=== PATIENT | female | born 1980 | race Caucasian/White ===

== ENCOUNTER → 2018-02-26 | Day surgery (SDC) | payer OTHER, BC ==
[~2018-02-26] MED LIST: ALBU2.5V8 IH; ALBU2.5V8 INH; BUDE10.2 IH; BYSTOLIC10 MG PO; DESV50TA PO; DEXT20TA2 PO; HYDROmorphone 2 MG/ML VIAL IV PRN; IV RINGERS,LACTATED 1000ML 1,000 ML IV SCH; LEVO100T5 PO; LIDOCAINE 1% PF 2 ML VIAL. ID PRN; MIDAZOLAM HCL/PF 2 MG/2 ML VIAL. IV PRN; MORPHINE SULFATE 2 MG/ML VIAL. IV PRN; ONDANSETRON PF 4 MG/2 ML VIAL. IV PRN; PROCHLORPERAZINE 10 MG/2 ML VIAL. IV PRN; PROPOFOL 20 ML IV ONE; PROPOFOL 60 ML IV ONE; TRAZ-86 PO; fentaNYL PF VIAL 100 MCG/2 ML VIAL IV PRN
[2018-02-26 10:03] LABS: U PREG PATIENT NEGATIVE (NEG)
[2018-02-26 11:58] VITALS: BP 135/62
--- NOTE | 2018-02-26 14:49 | PREOP HP ---
DATE OF SERVICE: 02/26/2018 REQUESTING PHYSICIAN AND PRIMARY CARE PHYSICIAN: Nila Nixon MD. REASON FOR PROCEDURE: Heartburn and history of Crohn's disease. HISTORY OF PRESENT ILLNESS: This is a 37-year-old female who presents with heartburn and a history of Crohn's disease. She is to undergo upper and lower endoscopy for further evaluation. The risks and benefits including bleeding, perforation, non-diagnosis and sedation were explained and she has agreed to proceed. PAST MEDICAL HISTORY: Significant for morbid obesity, binge eating disorder and Crohn's disease. MEDICATIONS: As per MAR. REVIEW OF SYSTEMS: Significant 12-point review of systems was done. It is positive as per HPI and otherwise negative. PHYSICAL EXAMINATION: VITAL SIGNS: She is afebrile and her vital signs are stable. GENERAL: She is an obese female, in no apparent distress. HEENT: Oropharynx is clear. CARDIOVASCULAR: S1, S2. LUNGS: Clear. ABDOMEN: Normoactive bowel sounds, soft, nontender, nondistended. EXTREMITIES: No edema. NEUROLOGIC: Awake, alert and oriented x 3. ASSESSMENT AND PLAN: 1. Heartburn. I will proceed with upper endoscopy for further evaluation. The risks and benefits including bleeding, perforation, non-diagnosis and sedation were explained and she has agreed to proceed. 2. Crohn's disease. Proceed with colonoscopy for further evaluation. The risks and benefits including bleeding, perforation, non-diagnosis and sedation were explained and she has agreed to proceed. Thank you for allowing me to participate in care of this patient. JANEL CANDELARIO MD DR: BRIANA/jace JOB#: [id number] / [id number]
--- NOTE | 2018-02-27 15:09 | PATHOLOGY ---
[facility] Accession Number: [id number] . 01 Material submitted: . PART A: SMALL BOWEL BIOPSY PART B: GASTRIC ANTRUM BIOPSY PART C: DISTAL ESOPHAGUS BIOPSY PART D: TERMINAL ILEUM PART E: CECAL POLYP BIOPSY PART F: CECUM BIOPSY PART G: ASCENDING COLON BIOPSY PART H: TRANSVERSE COLON BIOPSY PART I: DESCENDING COLON BIOPSY PART J: SIGMOID COLON BIOPSY PART K: RECTAL COLON BIOPSY . 01 Clinical history: . Heartburn, Crohn's . 02 Diagnosis: A. Small bowel, biopsy: - No significant histopathologic diagnosis. - Normal villous architecture. . B. Stomach, antrum, biopsy: - Chronic superficial gastritis, mild, with focal acute activity. - No evidence of Helicobacter pylori on immunoperoxidase stain. . C. Esophagus, distal, biopsy: - Squamocolumnar epithelium with moderate acute and chronic inflammation. - No evidence of intestinal metaplasia. . D. Small bowel, terminal ileum, biopsy: - Small bowel mucosa with moderate acute and chronic inflammation and focal superficial erosion. - No granulomata seen. . E. Colon, "cecal polyp", biopsy: - Hyperplastic polyp with moderate acute and chronic inflammation and focal superficial erosion. - No granulomata seen. . F, G, H and I. Colon, cecum, ascending, transverse, and descending, biopsies: - Colonic mucosa with acute cryptitis, focal, mild. - No granulomata seen. - No evidence of chronic inflammatory bowel disease. . J, K. Colon, sigmoid and rectum, biopsies: - Colonic mucosa with no significant histopathologic diagnosis. . (SKM:mmkell; 02/27/18) ON LICENSE OF [facility]/02/27/2018 . 02 Electronically signed: . Juvencio Lyons MD, Pathologist NPI- [id number] . 01 Gross description: . A. Received in formalin labeled "Pippa, Araceli, small bowel BX," are 4 segments of caldwell soft tissue measuring 1.2 x 0.6 x 0.2 cm in aggregate dimensions and ranging from 0.3 to 0.5 cm in maximum dimension. The specimen is submitted entirely in cassette A1. . B. Received in formalin labeled "Pippa, Araceli, gastric antrum," are 2 segments of caldwell soft tissue measuring 0.8 x 0.2 x 0.2 cm in aggregate dimensions and ranging from 0.3 to 0.5 cm in maximum dimension. The specimen is submitted entirely in cassette B1. . C. Received in formalin labeled "Pippa, Araceli, distal esophageal biopsy," are 3 segments of caldwell soft tissue measuring 0.9 x 0.6 x 0.2 cm in aggregate dimensions and ranging from 0.3 to 0.5 cm in maximum dimension. The specimen is submitted entirely in cassette C1. . D. Received in formalin labeled "Pippa, Araceli, terminal ileum BX," are multiple segments of caldwell soft tissue measuring 0.5 x 0.3 x 0.2 cm in aggregate dimensions. The specimen is filtered and entirely submitted in cassette D1. . E. Received in formalin labeled "Pippa, Araceli, cecal polyp," is a single segment of caldwell soft tissue measuring 0.3 cm in maximum dimension. The specimen is entirely submitted in cassette E1. . F. Received in formalin labeled "Pippa, Araceli, cecum BX," are 2 segments of caldwell soft tissue measuring 1.1 x 0.2 x 0.1 cm in aggregate dimensions and ranging from 0.5 to 0.6 cm in maximum dimension. The specimen is submitted entirely in cassette F1. . G. Received in formalin labeled "Pippa, Araceli, ascending colon," are 2 segments of caldwell soft tissue measuring 0.9 x 0.2 x 0.2 cm in aggregate dimensions and ranging from 0.4 to 0.5 cm in maximum dimension. The specimen is submitted entirely in cassette G1. . H. Received in formalin labeled "Pippa, Araceli, transverse colon," are 2 segments of caldwell soft tissue measuring 0.7 x 0.3 x 0.2 cm in aggregate dimensions and ranging from 0.3 to 0.4 cm in maximum dimension. The specimen is submitted entirely in cassette H1. . I. Received in formalin labeled "Pippa, Araceli, descending colon," are 2 segments of caldwell soft tissue measuring 0.7 x 0.2 x 0.1 cm in aggregate dimensions and ranging from 0.3 to 0.4 cm in maximum dimension. The specimen is submitted entirely in cassette I1. . J. Received in formalin labeled "Pippa, Araceli, sigmoid colon," are 2 segments of caldwell soft tissue measuring 0.9 x 0.2 x 0.1 cm in aggregate dimensions and ranging from 0.3 to 0.6 cm in maximum dimension. The specimen is submitted entirely in cassette J1. . K. Received in formalin labeled "Pippa, Araceli, rectal BX," are 2 segments of caldwell soft tissue measuring 0.7 x 0.2 x 0.2 cm in aggregate dimensions and ranging from 0.3 to 0.4 cm in maximum dimension. The specimen is submitted entirely in cassette K1. (TSD; 02/26/2018) TOB/TOB . 02 Pathologist provided ICD-10: K29.30, K20.9, K52.9, K63.5, K63.3, R12 . 02 CPT . 588395, [id number], 841011, 452496, 544543, 028094, 620842, 250192, 217574, 807267, [id number], [id number] Specimen Comment: A courtesy copy of this report has been sent to Specimen Comment: [phone], . Specimen Comment: Report sent to / DR BUSTILLOS Specimen Comment: A duplicate report has been generated due to demographic updates. Performed at: [address] [facility], [place] [id number] MD Jamie Dawson MD Phone: [phone] Performed at: [facility] [address] [place] [id number] MD Mustapha Cates MD Phone: [phone]
== END | disposition home or self-care (01) ==
LOC: SURG 09:14
PROVIDERS: ATTEND Internal Medicine Gastroenterology
DX: D12.0 Benign neoplasm of cecum (principal); K21.0 Gastro-esophageal reflux disease with esophagitis; K31.89 Other diseases of stomach and duodenum; K50.00 Crohn's disease of small intestine without complications; K64.0 First degree hemorrhoids; K57.30 Diverticulosis of large intestine without perforation or abscess without bleeding; K29.50 Unspecified chronic gastritis without bleeding; K52.89 Other specified noninfective gastroenteritis and colitis; K52.9 Noninfective gastroenteritis and colitis, unspecified; K62.89 Other specified diseases of anus and rectum; E66.01 Morbid (severe) obesity due to excess calories; Z91.018 Allergy to other foods; Z91.013 Allergy to seafood
CPT/HCPCS: 43239; 45380; 81025; 88305; 88342; J2704; 45378; 45385